=== PATIENT | male | born 1990 | race Caucasian/White ===

== ENCOUNTER 2018-12-19 21:50 | Emergency (ER) | payer SELFPAY ==
[~2018-12-19] VITALS: Ht 167.6 cm; Wt 87.4 kg
[2018-12-19 21:58] VITALS: BP 122/71; PULSE 80; RESP 20; Ht 167.6 cm; Wt 87.4 kg
[2018-12-20] MEDS ORDERED: KETOROLAC 60 MG INJ IM STA (00:04)
--- NOTE | 2018-12-20 00:12 | ERD ---
ER Documentation Chief Complaint Chief Complaint RT HAND INDEX FINGER LAC LAST TDAP 3YEARS AGO HPI Patient is a 28 years old male with no known past medical history presenting to the clinic for right indx finger laceration 6 hours ago. Patient admits to cleaning the kitchen when he accidentally went near the knife and cut the medial index finger (5cm). Patient reports Tetanus vaccination 3 years ago and reports bandages were applied to stop the bleeding with success. ROS All systems reviewed and are negative except as per history of present illness. Medications Home Meds Active Scripts Ibuprofen* (Motrin*) 800 Mg Tab, 800 MG PO Q6H PRN for PAIN AND OR ELEVATED TEMP, #30 TAB Prov:PATTI VALLEJO PA-C 12/20/18 Cephalexin* (Keflex*) 500 Mg Capsule, 500 MG PO QID for 5 Days, CAP Prov:PATTI VALLEJO PA-C 12/20/18 PMhx/Soc Medical and Surgical Hx: pt denies Medical Hx, pt denies Surgical Hx History of Surgery: No Anesthesia Reaction: No Hx Neurological Disorder: No Hx Respiratory Disorders: No Hx Cardiac Disorders: No Hx Psychiatric Problems: No Hx Miscellaneous Medical Probl: No Hx Alcohol Use: No Hx Substance Use: No Hx Tobacco Use: No Smoking Status: Never smoker FmHx Family History: No diabetes, No coronary disease, No other Physical Exam Vitals Vital Signs Date Temp Pulse Resp B/P (MAP) Pulse Ox O2 O2 Flow FiO2 Time Delivery Rate 12/19/18 98.9 80 20 122/71 99 21:58 (88) Physical Exam Const: No acute distress Head: Atraumatic. Resp: Clear to auscultation bilaterally Cardio: Regular rate and rhythm, no murmurs Neur: Awake and alert Psych: Normal Mood and Affect Right Index Finger Exam: 8cm Laceration on medial side with coagulated blood. No erythema or pus drainage. Results 24 hrs Current Medications Medications Dose Sig/Brandy Start Time Status Last (Trade) Ordered Route PRN Stop Time Admin Dose Reason Admin Ketorolac 60 mg ONCE STAT 12/20/18 DC 12/20/18 Tromethamine IM 00:04 00:31 (Toradol) 12/20/18 00:06 Procedures/MDM Patient was seen and evaluated for Laceration injury. Wound irrigation/debridement performed followed by laceration repair. Digital nerve block applied with 1% lidocaine followed by further anesthesia on laceration site. 8 sutures placed followed by dressing. Patient tolerated the procedure well. Patient is stable and ready for discharge. Patient was advised to f/u with 5 days for suture removal. Patient was informed to avoid using right index finger for 1 week and avoid submerging digit in water or contaminant. Departure Diagnosis: Primary Impression: Laceration Condition: Stable Patient Instructions: Laceration, Hand Referrals: [facility] Additional Instructions: Paciente aconseja volver a Departamento de urgencias inmediatamente para sntomas nuevos o que empeoran . Paciente aconseja posteriores con el PCP en 2-3 dumont . Paciente verbaliza la comprehensin y est de acuerdo con el tratamiento y el curso de accin. Si el paciente no tiene ninguna de atencin primaria pueden seguir con [facility] [address] [place] [address] o [facility] + [address] [address] PATTI VALLEJO PA-C December 20, 2018 00:12
[2018-12-20] MEDS ORDERED: IBUP800T48 PO (01:23)
[2018-12-20] MEDS ORDERED: CEPH-443 PO (01:23)
[2018-12-20] MEDS ORDERED: BACITRACIN 0.9 GM OINT ONE (01:42)
[2018-12-20] MEDS ORDERED: BACITRACIN 0.5%/ZINC 28.35 GM OINT TOP ONE (02:00)
== END 2018-12-20 01:50 | disposition home or self-care (01) ==
LOC: FTE 21:50
DX: S61.210A Laceration without foreign body of right index finger without damage to nail, initial encounter (principal); W26.0XXA Contact with knife, initial encounter; Y92.030 Kitchen in apartment as the place of occurrence of the external cause
CPT/HCPCS: 12004; J1885; 96372